=== PATIENT | male | born 1960 | race Hispanic/Latino ===

== ENCOUNTER 2024-06-12 13:36 | Emergency (ER) | payer SELFPAY ==
[~2024-06-12] VITALS: Ht 175.3 cm; Wt 95.3 kg
[2024-06-12] MEDS: PANTOPRAZOLE 40 MG/VIAL IVP ONE (14:28)
[2024-06-12] MEDS: ONDANSETRON 4MG INJ IVP ONE (14:29)
[2024-06-12] MEDS: LACTATED RINGERS 1000ML 1,000 ML IV ONE (14:31)
[2024-06-12 14:36] LABS: BASOPHILS # (AUTO) 0.02 K/uL (0.00-0.20); BASOPHILS % (AUTO) 0.3 % (0.0-5.0); HEMATOCRIT 47.2 % (42-54); IMMATURE GRANULOCYTE ABSOLUTE 0.01 K/uL (0-1); LYMPHOCYTES # (AUTO) 0.6 K/uL (1.0-4.8); LYMPHOCYTES % (AUTO) 8.4 % (21.0-51.0); MEAN CORPUSCULAR HEMOGLOBIN 33.7 pg (27.0-33.0); MEAN CORPUSCULAR HGB CONC 35.4 g/dL (32.0-36.0); MEAN CORPUSCULAR VOLUME 95.4 fL (79-99); MONOCYTES # (AUTO) 0.5 K/uL (0.1-1.0); MONOCYTES % (AUTO) 6.7 % (3.0-13.0); NEUTROPHILS % (AUTO) 84.5 % (40.0-77.0); PLATELET COUNT (AUTO) 202 K/uL (130-400); RED BLOOD CELL COUNT(AUTO) 4.95 MIL/uL (4.50-6.20); RED CELL DISTRIBUTION WIDTH 12.9 % (11.0-15.5)
[2024-06-12 14:44] LABS: CREATININE 2.1 mg/dL (0.5-1.3)
[2024-06-12 14:53] LABS: ALBUMIN 3.8 g/dL (3.5-5.0); BILIRUBIN,DIRECT 0.1 mg/dL (0.0-0.3); BILIRUBIN,TOTAL 0.4 mg/dL (0.2-1.0); TOTAL PROTEIN, SERUM 7.9 g/dL (6.0-8.3)
[2024-06-12] MEDS: MAG/ALUM/SIMETH 30 ML UDCUP PO ONE (15:58)
[2024-06-12] MEDS: LIDOCAINE HCL 2% VISCOUS 15 ML UDCUP PO ONE (15:58)
[2024-06-12] MEDS ORDERED: PANT40TA55 PO (16:20)
[2024-06-12 16:32] VITALS: BP 110/90; PULSE 66; RESP 16; O2SAT 99
== END 2024-06-12 16:34 | disposition home or self-care (01) ==
LOC: EDH 13:36
DX: A08.4 Viral intestinal infection, unspecified (principal); I10 Essential (primary) hypertension
CPT/HCPCS: 99284; 96374; 96361; 96375; 82550; 80076; 84484; 80048; 83690; 85025; 36415; 93005; J7120; J2405; J2470